=== PATIENT | male | born 1990 | race Caucasian/White ===

== ENCOUNTER 2016-09-06 02:38 | Emergency (ER) | payer MEDICAID, MEDICARE, OTHER ==
[2016-09-06] MEDS ORDERED: LIDOCAINE 1%/EPINEPHRINE INJ 20 ML VIAL INJ ONE (02:56)
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
[2016-09-06] MEDS ORDERED: LIDOCAINE 2%/EPINEPHRINE INJ 20 ML VIAL INJ ONE (03:40)
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
[2016-09-06 05:27] VITALS: BP 130/98
== END 2016-09-06 05:06 | disposition home or self-care (01) ==
LOC: ER 02:38
PROC: 0HQ1XZZ Repair Face Skin, External Approach (ICD-10-PCS; principal; 2016-09-06)
PROC: 0HQGXZZ Repair Left Hand Skin, External Approach (ICD-10-PCS; 2016-09-06)
DX: S01.81XA Laceration without foreign body of other part of head, initial encounter (principal); S61.213A Laceration without foreign body of left middle finger without damage to nail, initial encounter; W01.110A Fall on same level from slipping, tripping and stumbling with subsequent striking against sharp glass, initial encounter
CPT/HCPCS: 99283; 70450; 70486; 12013; 12001; J3490